=== PATIENT | male | born 1990 | race Caucasian/White ===

== ENCOUNTER 2017-05-09 14:37 | Emergency (ER) | payer SELFPAY ==
[~2017-05-09] VITALS: Ht 190.5 cm; Wt 74.8 kg
[2017-05-09 14:52] VITALS: Ht 190.5 cm; Wt 74.8 kg
[2017-05-09 15:56] LABS: BASOPHIL % 0.9 % (0-2); PLATELET COUNT 243 x10^3mcL (130-400); RED CELL DISTRIBUTION WIDTH 12.7 % (11.5-14.5)
[2017-05-09 16:22] LABS: CALCIUM 9.3 mg/dL (8.5-10.1); CARBON DIOXIDE 27.8 mmol/L (21-32); CHLORIDE SERUM 100 mmol/L (98-107); CREATININE SERUM 0.9 mg/dL (0.7-1.3); GFR1 > 60 mL/min; GLUCOSE SERUM 94 mg/dL (74-106); SODIUM SERUM 136 mmol/L (136-145)
[2017-05-09 16:27] LABS: ALKALINE PHOSPHATASE 62 U/L (46-116); ALT/SGPT 25 U/L (16-63); AST/SGOT 19 U/L (15-37); BILIRUBIN TOTAL 0.56 mg/dL (0.20-1.00); FREE T4 1.21 ng/dL (0.76-1.46); LIPASE 159 IU/L (73-393); TOTAL PROTEIN, SERUM 7.8 g/dL (6.4-8.2)
[2017-05-09 16:57] LABS: AMPHETAMINE QUAL UR POSITIVE (NEG <=1000)
[2017-05-09 19:45] VITALS: BP 156/99
== END 2017-05-09 19:45 | disposition home or self-care (01) ==
LOC: ED 14:37
PROVIDERS: Emergency Medicine
DX: R07.89 Other chest pain (principal); F15.10 Other stimulant abuse, uncomplicated
CPT/HCPCS: 83880; 84439; 85378; G0480; J2060; J7030